=== PATIENT | male | born 1975 | race Caucasian/White ===

== ENCOUNTER 2019-03-17 18:52 | Emergency (ER) | payer BC ==
[2019-03-17] MEDS ORDERED: Bacitracin Oint 1 GM U/D Packet TOP ONE (19:17)
--- NOTE | 2019-03-17 20:02 | EDM.PDOC ---
ED HPI GENERAL MEDICAL PROBLEM - General Chief Complaint: Laceration Stated Complaint: CUT FINGER ON ICE AUGER Time Seen by Provider: 03/17/19 19:30 Source of Information: Reports: Patient, Family History Limitations: Reports: No Limitations - History of Present Illness INITIAL COMMENTS - FREE TEXT/NARRATIVE: 43-year-old male with a laceration to the index finger on the left hand. He cut it on an ice auger blade. No other complaints. Onset: Sudden Duration: Hour(s): (1 hour ago) Location: Reports: Upper Extremity, Left Treatments SEW[employer] DIS[employer]AL [employer]ER: Reports: Dressing(s) Left Finger-Index Pain Score (Numeric/FACES): 1 - Related Data Allergies Allergy/AdvReac Type Severity Reaction Status Date / Time No Known Allergies Allergy Verified 03/17/19 19:10 Home Meds: Home Meds NK [No Known Home Meds] 03/17/19 [History] Past Medical History - Past Health History Medical/Surgical History: Denies Medical/Surgical History Social & Family History - Family History Family Medical History: Noncontributory - Tobacco Use Smoking Status *Q: Light Tobacco Smoker Years of Tobacco use: 30 Packs/Tins Daily: 1 - Caffeine Use Caffeine Use: Reports: Coffee, Soda - Recreational Drug Use Recreational Drug Use: No ED ROS GENERAL - Review of Systems Review Of Systems: See Below Constitutional: Denies: Fever, Chills Respiratory: Denies: Shortness of Breath GI/Abdominal: Denies: Nausea, Vomiting Neurological: Reports: Paresthesia (slight paresthesias along the ulnar aspect of the finger) ED EXAM, SKIN/RASH Exam: See Below Exam Limited By: No Limitations General Appearance: Alert, No Apparent Distress Respiratory/Chest: No Respiratory Distress Extremities: Other (remainder of exam is limited to the left hand. Patient has a 3.5 cm laceration across the palmar surface of the distal left index finger.It is fairly deep and extends across the DIP joint. He does have some flexion ability of the finger distally, however when exploring the wound the distal flexor tendon is severed.) Course - Vital Signs Last Recorded V/S: Last Vital Signs Temp 97.7 F 03/17/19 19:16 Pulse 72 03/17/19 19:16 Resp 14 03/17/19 19:16 BP 125/58 L 03/17/19 19:16 Pulse Ox 98 03/17/19 19:16 - Orders/Labs/Meds Meds: Medications Discontinued Medications Generic Name Dose Route Start Last Admin Trade Name Jossue PRN Reason Stop Dose Admin Bacitracin 1 dose 03/17/19 19:17 03/17/19 19:54 Bacitracin Oint 1 Gm TOP 03/17/19 19:18 1 dose ONETIME ONE Administration Lidocaine HCl 5 ml 03/17/19 19:17 03/17/19 19:54 Xylocaine-Mpf 1% INJECT 03/17/19 19:18 5 ml ONETIME ONE Administration - Re-Assessments/Exams Free Text/Narrative Re-Assessment/Exam: 03/17/19 20:01 the area was infiltrated with 1% lidocaine, washed thoroughly with saline and explored. His distal flexor tendon was lacerated at the base of the distal phalange. The wound was then closed with 6 5-0 Ethilon sutures, he'll be placed on cephalexin 500 mg 3 times a day given 10 hydrocodone for pain control. Topical bacitracin and a tube gauze was applied. Consultation with hand surgery at [place] where the patient is from was obtained. 03/17/19 20:09 Doctor Morena will see him on Wednesday at 9 AM, recommended him to be n.p.o. Departure - Departure Time of Disposition: 20:14 Disposition: Home, Self-Care 01 Clinical Impression: Laceration of left index finger Qualifiers: Encounter type: initial encounter Damage to nail status: without damage Foreign body presence: without foreign body Qualified Code(s): S61.211A - Laceration without foreign body of left index finger without damage to nail, initial encounter Flexor tendon laceration of finger with open wound Qualifiers: Encounter type: initial encounter Qualified Code(s): S56.129A - Laceration of flexor muscle, fascia and tendon of unspecified finger at forearm level, initial encounter - Discharge Information Instructions: Laceration Care, Adult Referrals: PCP,None [Primary Care Provider] - Forms: ED Department Discharge Care Plan Goals: Keep wound covered and clean through the weekend, and take antibiotic as prescribed. Ibuprofen or naproxen will help with pain, add stronger pain medication if needed. Recheck at [facility] on Wednesday at [address] Berg, hand surgeon and arrive without eating or drinking anything after midnight in case a procedure is recommended. Keep fishing Sepsis Event Note - Evaluation Sepsis Screening Result: No Definite Risk - Focused Exam Vital Signs: Vital Signs Temp Pulse Resp BP Pulse Ox 03/17/19 19:16 97.7 F 72 14 125/58 L 98 Date Exam was Performed: 03/17/19 Time Exam was Performed: 20:38
== END 2019-03-17 20:19 | disposition home or self-care (01) ==
LOC: JP.ED 18:52
DX: S56.129A Laceration of flexor muscle, fascia and tendon of unspecified finger at forearm level, initial encounter (principal); W45.8XXA Other foreign body or object entering through skin, initial encounter; F17.210 Nicotine dependence, cigarettes, uncomplicated
CPT/HCPCS: 12002; 99282; J2001